=== PATIENT | male | born 1975 | race Caucasian/White ===

== ENCOUNTER 2018-10-22 22:18 | Emergency (ER) | payer OTHER, SELFPAY ==
[2018-10-22 22:26] VITALS: BP 142/91; PULSE 77; RESP 15; TEMP 36.3; O2SAT 98; BMI 25.0
[2018-10-22] MEDS: SODIUM CHLORIDE 0.9% 1,000 ML 150 ML IV (22:48)
[2018-10-22 22:53] LABS: BUN Creatinine Ratio 15.5 (6-22); Blood Urea Nitrogen 17 mg/dL (9-20); Calcium 9.8 mg/dL (8.4-10.2); Carbon Dioxide 28 mmol/L (22-32); Chloride 104 mmol/L (98-107); Estimated Glomerular Filt Rate > 60.0 mL/min (>60); Glucose 106 mg/dL (70-100); HEMOLYSIS 33 (0-50); Potassium 3.7 mmol/L (3.4-5.1); Sodium 140 mmol/L (137-145)
[2018-10-22 22:54] LABS: Add Manual Diff / Slide Review NO; Basophils Absolute Auto 0 /uL (0-100); Basophils Percent Auto 0.7 % (0-2); Eosinophils Absolute Auto 500 /uL (0-450); Lymphocytes Absolute Auto 3100 /uL (1100-4500); Lymphocytes Percent Auto 45.2 % (25-40); Mean Corpuscular HGB Conc 34.8 % (30-36); Mean Corpuscular Volume 83.3 fL (80-100); Monocytes Absolute Auto 500 /uL (0-900); Monocytes Percent Auto 7.9 % (3-14); Neutrophils Absolute Auto 2600 /uL (1500-7000); Neutrophils Percent Auto 38.2 % (50-75); Platelet Count 177 X10^3/uL (150-400); Red Blood Cell Count 5.16 X10^6/uL (4.5-5.9); Red Cell Distribution Width 13.3 % (11.6-14.8); White Blood Cell Count 6.9 X10^3/uL (4.5-11.0)
[2018-10-22 23:05] LABS: Troponin I < 0.012 ng/mL (0.01-0.034)
--- NOTE | 2018-10-23 00:39 | ED_ITS ---
HPI - Dizziness General Chief Complaint: Dizziness Stated Complaint: passed out earlier Time Seen by Provider: 10/22/18 22:48 Source: patient Mode of arrival: ambulatory Limitations: no limitations History of Present Illness HPI Narrative: Patient is a 43-year-old male who presents after syncopal episode. He states that he was sitting on the couch downstairs he went up stairs to get a glass of water poured himself a glass of water was on his way back down stairs he almost needed to the landing he felt extremely lightheaded felt like he might pass out and he woke up on the landing. His heard him fall he was out for just a brief moment in time. He has no sign of head injury not on any antiplatelet or anticoagulation medication. He has no neck pain numbness tingling or weakness. He states that his apple watch said his heart rate was 160 after the event and he was quite diaphoretic. He overall now feels fine. He has had light at had episodes when he stands up in the past but has never actually passed out. MD complaint: near syncope Timing: sudden onset Related Data Home Medications Medication Instructions Recorded Confirmed multivitamin [Multiple Vitamins] 1 tab PO QDAY #0 08/18/16 Allergies Allergy/AdvReac Type Severity Reaction Status Date / Time grass pollen [GRASS POLLEN] Allergy Unknown Verified 10/22/18 22:26 Penicillins [PENICILLINS] Allergy Unknown Verified 10/22/18 22:26 Review of Systems Review of Systems GENERAL: Denies chills, fatigue, malaise, fever, sweats, travel HEENT: Denies sinus pain, ear pain, sore throat, difficulty swallowing, neck pain RESPIRATORY: Denies dyspnea, cough, wheezing, hemoptysis, sputum. CARDIOVASCULAR: Palpitations see HPI GASTROINTESTINAL: Denies nausea, vomiting, abdominal pain, diarrhea, constipation, melena. : Denies dysuria, frequency, incontinence, hematuria, urinary retention, flank pain. MUSCULOSKELETAL: Denies weakness, joint pain, or bony pain SKIN: No rash, no erythema, no pruritus NEUROLOGIC: See HPI PSYCHIATRIC: No concerning psychosocial issues. 12 point review of systems is negative except for those stated above and HPI [facility] Medical History Patient denies significant medical history (Acute) Social History Smoking Status: Unknown if ever smoked Social History Smoking Status: Unknown if ever smoked Exam Initial Vital Signs Initial Vital Signs: Vital Signs Temperature 97.3 F L 10/22/18 22:26 Pulse Rate 77 10/22/18 22:26 Respiratory Rate 15 10/22/18 22:26 Blood Pressure 142/91 H 10/22/18 22:26 Pulse Oximetry 98 10/22/18 22:26 GENERAL: Well-appearing, well-nourished and in no acute distress. HEENT: Head atraumatic,EOMI, pupils reactive, face symmetric, moist mucous membranes CARDIOVASCULAR: Regular rate and rhythm without murmurs, rubs or gallops. RESPIRATORY: Breath sounds equal bilaterally, no wheezes rales or rhonchi. ABDOMEN: Soft, nontender. Normoactive bowel sounds all 4 quadrants. No guarding or rebound. : No CVA tenderness EXTREMITIES: Normal range of motion, no clubbing or edema. Neurovascularly intact NEUROLOGICAL: Alert and oriented x4.Normal gait and speech. Cranial nerves II through XII grossly intact. [employer] Chief [employer] strength equal bilaterally lower extremity strength equal SKIN: Warm, dry, no laceration, no petechiae, no rashes or lesions. Course Orders Ordered: ED Orders 10/22/18 22:26 EKG-12 Lead Stat 10/22/18 22:30 Basic Metabolic Panel Stat Complete Blood Count AUTO DIFF Stat Troponin I Stat Sodium Chloride (Normal Saline 0.9%) 1,000 mls @ 150 mls/hr IV CONT JENNIFER Last Admin: 10/22/18 22:48 Dose: 150 mls/hr Vital Signs - 8 hr 10/22/18 22:26 Temperature 97.3 F L Pulse Rate 77 Respiratory Rate 15 Blood Pressure 142/91 H Pulse Oximetry 98 MDM - Dizziness Lab Data Attestation: I reviewed the patient's lab results. Result diagrams: 10/22/18 22:30 10/22/18 22:30 Lab Results 10/22/18 10/22/18 Range/Units 22:30 22:30 WBC 6.9 (4.5-11.0) X10^3/uL RBC 5.16 (4.5-5.9) X10^6/uL Hgb 15.0 (13.5-17.5) g/dL Hct 43.0 (41-53) % MCV 83.3 (80-100) fL MCH 29.0 (26-34) PG MCHC 34.8 (30-36) % RDW 13.3 (11.6-14.8) % Plt Count 177 (150-400) X10^3/uL Neut % (Auto) 38.2 L (50-75) % Lymph % (Auto) 45.2 H (25-40) % [place] % (Auto) 7.9 (3-14) % Eos % (Auto) 8.0 H (2-4) % Baso % (Auto) 0.7 (0-2) % Neut # (Auto) 2600 (3094-5449) /uL Lymph # (Auto) 3100 (6120-6015) /uL [place] # (Auto) 500 (0-900) /uL Eos # (Auto) 500 H (0-450) /uL Baso # (Auto) 0 (0-100) /uL Sodium 140 (137-145) mmol/L Potassium 3.7 (3.4-5.1) mmol/L Chloride 104 (98-107) mmol/L Carbon Dioxide 28 (22-32) mmol/L BUN 17 (9-20) mg/dL Creatinine 1.10 (0.66-1.25) mg/dL Estimated GFR > 60.0 (>60) mL/min BUN/Creatinine Ratio 15.5 (6-22) Glucose 106 H (70-100) mg/dL Calcium 9.8 (8.4-10.2) mg/dL Troponin I < 0.012 (0.01-0.034) ng/mL ECG Data Attestation: I personally reviewed and interpreted this ECG as follows: Prior ECG tracings: not available for review Interpretation: Normal sinus rhythm rate 81 p.r. interval 172, QRS 104 QTC 381 benign early positional refill polarization no acute ST elevations no T-wave inversions. MDM Narrative Medical decision making narrative: The patient likely had a vasovagal episode. Heart rate noted of 160 afterwards likely sinus however at this time on able to confirm that. I discussed with patient Holter monitor which can be arranged as outpatient. At this time he has no focal deficits to suggest CT.. Discharge Plan Departure Patient Disposition: Home Clinical Impression: Vasovagal episode Instructions: Fainting Activity Restrictions/Additional Instructions: *You have been diagnosed with vasovagal reaction *What to do: At this time I think this is likely a normal reflex response by your body. However I do recommend Holter monitor which can be arranged an outpatient. *Continue to take medications as directed *Follow up with your primary care provider in 2-3 days *Return to ER if you should have recurrent episodes of passing out, heart palpitations, chest pain, weakness numbness tingling or any new, worsening or concerning symptoms Prescriptions: No Action multivitamin [Multiple Vitamins] 1 EACH tablet 1 tab PO QDAY Qty: 0 RF: 0 Referrals: [facility] Resources [Outside] Josue Green MD [Primary Care Provider] -
[2018-10-23 00:52] VITALS: BP 126/80; PULSE 69; RESP 18; O2SAT 97
== END 2018-10-23 00:53 | disposition home or self-care (01) ==
PROVIDERS: Emergency Provider Emergency Medicine; PCP Family Medicine
DX: R55 Syncope and collapse (principal)
CPT/HCPCS: 36591; 80048; 84484; 85025; 93005; 96360; 96361; 99283; 99284